=== PATIENT | female | born 1955 | race Caucasian/White ===

== ENCOUNTER → 2019-12-21 | Day surgery (SDC) | payer MEDICARE ==
[~2019-12-21] MED LIST: COLE1TAB PO; FAMO20TA5 PO; FLUO20CA20 PO; IV RINGERS,LACTATED 1000ML 1,000 ML IV ONE; LIDOCAINE 2% PF 5 ML VIAL. ONE; MELO15TA23 PO; MULT1TAB52 PO; PANT40TA77 PO; PROPOFOL 40 ML IV ONE
[2019-12-21 08:19] VITALS: BP 133/59
--- NOTE | 2019-12-22 17:07 | PATHOLOGY ---
[facility] Accession Number: [id number] . 01 Material submitted: . PART A: esophagus - DISTAL ESOPHAGEAL BIOPSY. Modifiers: distal PART B: colon - RANDOM COLON BIOPSY . 01 Clinical history: . Pre-op diagnosis: Abdominal pain, bloating, diarrhea Post-op diagnosis: Reflux, R/O Hoffman's, diarrhea . 02 Diagnosis: A. Esophageal biopsies, distal esophagus: - Reflux esophagitis. . B. Colonic mucosa, random colon biopsies: - Suggestive of microscopic (lymphocytic) colitis. ([facility] 12[facility]) [facility] 12/22/[address] [place] [address] . 02 Comment: Sections of the distal esophageal biopsy reveal segments of focally tangentially oriented hyperplastic squamous esophageal mucosa. Focally, there are a few intraepithelial eosinophils. The findings are supportive of the diagnosis of reflux esophagitis. There is no evidence of Hoffman's change, dysplasia, or malignancy. . Sections of the random colon biopsy reveal multiple segments of colonic mucosa showing a mild chronic active colitis without crypt architectural distortion or subepithelial collagen deposition. Intraepithelial lymphocytes are increased. 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 . ([facility] 12/22/2019) . 02 Electronically signed: . Malik Quiles MD, Pathologist NPI- [id number] . 01 Gross description: . A. The specimen is received in formalin, labeled "Mary Regla, distal esophagus biopsy". Received are four segments of pale solis soft tissue ranging in size from 0.4 to 0.8 cm in maximum dimensions. The specimen is submitted entirely in cassette A1. . B. The specimen is received in formalin, labeled "Mary Regla, random colon biopsy". Received are multiple (greater than 10) segments of pale solis soft tissue ranging in size from 0.2 to 0.9 cm in maximum dimensions. The specimen is submitted entirely in cassette B1. ([facility]; 12/21/2019) [facility] 12/21/2019 1704 Local . 02 Pathologist provided ICD-10: K21.0, R19.7 . 02 CPT . 251915, [id number] Specimen Comment: A courtesy copy of this report has been sent to [phone], [phone] Specimen Comment: [phone] Specimen Comment: Report sent to / DR BURK Performed at: 01 [facility] [address] [facility] [address], [place] [id number] MD Juan Jordan MD Phone: [phone] Performed at: 02 [facility] [address] [place], [place] [id number] MD Malik Quiles MD Phone: [phone]
== END | disposition home or self-care (01) ==
LOC: ENDOS 06:32
PROVIDERS: ATTEND Internal Medicine Gastroenterology
DX: R19.7 Diarrhea, unspecified (principal); K51.80 Other ulcerative colitis without complications; K64.0 First degree hemorrhoids; K63.89 Other specified diseases of intestine; K31.89 Other diseases of stomach and duodenum; K21.0 Gastro-esophageal reflux disease with esophagitis; M19.90 Unspecified osteoarthritis, unspecified site; F17.210 Nicotine dependence, cigarettes, uncomplicated; Z79.899 Other long term (current) drug therapy; Z98.51 Tubal ligation status; Z98.890 Other specified postprocedural states
CPT/HCPCS: 43239; 45380; 88305; J2001; J2704